=== PATIENT | female | born 1940 | race Caucasian/White ===

== ENCOUNTER → 2017-01-06 | Outpatient (CLI) | payer MEDICARE, BC ==
[~2017-01-06] MED LIST: ANUSOL HC 25 M1 SUPP R; KRILL OIL500 MG PO; ONE DAILY FOR1 EAC2 PO; PROTONIX40 MG PO; TYLENOL325 MG PO; VITAMIN C100 MG PO; VITAMIN D1000 UNIT PO; ZETIA10 MG PO
== END ==
LOC: GBCOE 11:50
DX: Z12.31 Encounter for screening mammogram for malignant neoplasm of breast (principal); R92.1 Mammographic calcification found on diagnostic imaging of breast
CPT/HCPCS: G0202